=== PATIENT | male | born 1965 | race Caucasian/White ===

== ENCOUNTER 2016-06-30 22:23 | Emergency (ER) | payer SELFPAY ==
[2016-06-30] MEDS ORDERED: THIAMINE HCL 100 MG, MVI, ADULT NO.1 WITH VIT K 10 ML, FOLIC ACID 5 MG in 0.9 % SODIUM ... IV ONE ×4 (22:55)
[2016-06-30] MEDS ORDERED: LORazepam 2 MG/ML VIAL IVP ONE (22:58)
[2016-06-30] MEDS ORDERED: 0.9 % SODIUM CHLORIDE 1,000 ML IV ONE ×2 (23:03→23:39)
[2016-06-30] MEDS ORDERED: MVI, ADULT NO.1 WITH VIT K 10 ML VIAL IV ONE (23:04)
[2016-06-30] MEDS ORDERED: THIAMINE HCL 100 MG/ML 2ML VIAL ONE (23:04)
[2016-06-30] MEDS ORDERED: FOLIC ACID 5 MG/1 ML ONE (23:04)
[2016-06-30 23:18] LABS: eGFR (African) > 60; eGFR (Non-African) > 60
--- NOTE | 2016-06-30 23:18 | ED Physician Documentation ---
General Adult - HISTORIAN Historian: patient - HPI Stated Complaint: alcoholism Chief Complaint: General Adult Additional Information: Pt. has been drinking alcohol his entire adult life Onset: other (daily drinking for many years) Timing: still present Severity: moderate Modifying Factors: anxiety Context: daily Quality: moderate Further Comments: no - ROS CONST: no problems EYES/ENT: none CVS/RESP: none GI/: none MS/SKIN/LYMPH: none NEURO/PSYCH: anxiety. denies: headache, fainting, dizziness, tingling, numbness , difficulty walking, difficulty with speech, depression - PAST HX Past History: other (alcoholism) Other History: none Surgeries/Procedures: other (appendectomy) Immunizations: referred to PCP Allergies/Adverse Reactions: Allergies Allergy/AdvReac Type Severity Reaction Status Date / Time No Known Allergies Allergy Verified 06/30/16 23:32 Home Medications: Ambulatory Orders Medication Instructions Recorded NK [NK] 06/30/16 - SOCIAL HX Smoking History: other (occasional smoker) Alcohol Use: heavy Drug Use: none - FAMILY HX Family History: No - REVIEWED ASSESSMENTS Nursing Assessment Reviewed: No Vitals Reviewed: No Progress - Results/Orders Results/Orders: ekg, cxr, cbc, cmp, ua, pt/ptt/inr, uds, etoh ordered - Progress Progress: pt. given 1 mg Ativan ivp, a banana bag IV in ER Critical Care Note - Critical Care Note Total Time (mins): 0 ED Results Lab/Radiology - Lab Results Lab Results: etoh 410, uds positive for benzodiazepines (was given ativan), ua unremarkable, amylse 300, potassium 3.1 - Radiology Radiology Impressions: cxr neg - Orders Orders: ED Orders Category Date Time Status Place Saline Lock/IV Now Care 06/30/16 22:55 Active CHEST 1 VIEW [RAD] Routine Exams 06/30/16 Ordered AMYLASE Routine Lab 06/30/16 22:50 Received CBC/PLATELET/DIFF Routine Lab 06/30/16 22:50 Received CMP Routine Lab 06/30/16 22:50 Received DRUG SCREEN URINE MEDICAL ONLY Routine Lab 06/30/16 Ordered ETHANOL MEDICAL USE ONLY Routine Lab 06/30/16 22:50 Received PT [PT-INR] Routine Lab 06/30/16 22:50 Received PTT Routine Lab 06/30/16 22:50 Received URINALYSIS Routine Lab 06/30/16 22:54 Ordered 0.9 % Sodium Chloride [Normal Saline] 1,000 ml Med 06/30/16 23:03 Discontinued IV .STK-MED Folic Acid [Folvite] Med 06/30/16 23:04 Discontinued 5 mg .ROUTE .STK-MED ONE LORazepam [Ativan] Med 06/30/16 22:58 Discontinued 1 mg IVP NOW ONE Mvi, Adult No.1 with Vit K [M.v.i. Adult] Med 06/30/16 23:04 Discontinued 10 ml IV .STK-MED ONE Thiamine HCl Med 06/30/16 23:04 Discontinued 200 mg .ROUTE .STK-MED ONE Thiamine HCl 100 mg Med 06/30/16 22:55 Discontinued Mvi, Adult No.1 with Vit K [M.v.i. Adult] 10 ml Folic Acid [Folvite] 5 mg 0.9 % Sodium Chloride [Normal Saline] 1,000 ml IV 1T EKG WITH COMPARISON Routine Ther 06/30/16 Ordered General Adult Physical Exam - PHYSICAL EXAM GENERAL APPEARANCE: anxious, intoxicated EENT: eye inspection normal, ENT inspection normal, pharynx normal, ISABELL, TM's nml, nystagmus NECK: normal inspection, thyroid normal, supple RESPIRATORY: no resp distress, chest non-tender, breath sounds normal CVS: reg rate & rhythm, heart sounds normal, equal pulses, no murmur, no gallop , PMI nml, no JVD ABDOMEN: soft, no organomegaly, normal bowel sounds, no abdominal bruit, no distension, non-tender BACK: normal inspection, no CVA tenderness SKIN: warm/dry, other (spider vascularity bilateral maxillary areas) EXTREMITIES: non-tender, normal range of motion, no evidence of injury, no edema , other (no asterixis) NEURO: oriented X3, CN's nml as tested, motor nml, sensation nml, other ( intoxicated) Discharge Clincal Impression: Alcoholism Home Medications: Ambulatory Orders NK [NK] 06/30/16 Comments: Case discussed with [facility] ([place] and all medical records reviewed by them. They accept pt. for admission. Transported in stable condition by family to [facility] [place] Condition: Stable Disposition: 01 HOME, SELF-CARE Decision to Admit: NO Decision Time: 01:00
[2016-06-30 23:19] LABS: BASOPHILS % 0.2 (0.0-1.5); LYMPHOCYTES # 1.7 # k/uL (0.6-4.0); MEAN CORPUSCULAR HEMOGLOBIN 31.9 pg (28.0-34.0); MONOCYTES # 0.1 # k/uL (0.0-0.9); MONOCYTES % 3.4 % (0.0-11.0); NEUTROPHILS # 2.2 # k/uL (1.4-7.7)
[2016-06-30] MEDS ORDERED: POTASSIUM CHLORIDE 20 MEQ TABLET.ER PO ONE (23:32)
--- NOTE | 2016-06-30 23:37 | Diagnostic Imaging Report ---
~ [facility] [address] [facility] [address] [facility] [address], [place]. [address] ~ ~ ~ ~ Report Submission Date: Jun 30, 2016 11:36:08 PM BODY JOINER Patient ~ Study Name: CATIA FLOWER ~ Date: Jun 30, 2016 11:22:59 PM BODY JOINER ~ Modality Type: CR Gender: M ~ Description: CHEST : 67 ~ Institution: [facility] Physician: FRANCISCO PETERS ~ ~ ~ ~ Portable chest History: Cough Findings: The lungs are clear. No pleural effusions are observed. Heart size and pulmonary vascularity are normal. Impression: Normal chest. ~ Electronically signed on Jun 30, 2016 11:36:08 PM BODY JOINER by: Kuldip GIRALDO
[2016-06-30] MEDS ORDERED: 0.9 % SODIUM CHLORIDE 1,000 ML IV SCH (23:45)
[2016-07-01 01:11] LABS: AMPHETAMINE NEGATIVE ng/mL (<1000); BARBITURATES NEGATIVE ng/mL (<300); CANNABINOIDS NEGATIVE ng/mL (<50); COCAINE NEGATIVE ng/mL (<150); METHAMPHETAMINE NEGATIVE ng/mL (<1000); METHYLENEDIOXYMETHAMPHETAMINE NEGATIVE ng/mL (<500)
[2016-07-01 01:12] LABS: APPEARANCE,URINE CLEAR (CLEAR); COLOR,URINE AMBER (YELLOW); OCCULT BLOOD,URINE NEGATIVE (NEGATIVE)
[2016-07-01 01:20] VITALS: BP 140/98
== END 2016-07-01 01:00 | disposition home or self-care (01) ==
LOC: ED 22:23
DX: F10.229 Alcohol dependence with intoxication, unspecified (principal)
CPT/HCPCS: 71010; 80053; 80320; 80377; 81002; 82150; 85025; 85610; 85730; A9270; J2060; J3411; J3490; J7030; 96361; 96374; 99283; G0477; G0480; S1016

== ENCOUNTER 2017-03-09 16:56 | Emergency (ER) | payer SELFPAY ==
[2017-03-09] MEDS ORDERED: ONDANSETRON HCL/PF 4 MG/ 2ML VIAL ONE (17:12)
[2017-03-09] MEDS ORDERED: 0.9 % SODIUM CHLORIDE 1,000 ML IV ONE (17:13)
[2017-03-09] MEDS ORDERED: THIAMINE HCL 100 MG/ML 2ML VIAL ONE (17:13)
[2017-03-09] MEDS ORDERED: LORazepam 2 MG/ML VIAL ONE (17:13)
[2017-03-09] MEDS ORDERED: FOLIC ACID 5 MG/1 ML ONE (17:13)
[2017-03-09] MEDS ORDERED: MVI, ADULT NO.1 WITH VIT K 10 ML VIAL IV ONE (17:14)
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
[2017-03-09 17:27] LABS: BASOPHILS % 0.8 (0.0-1.5); MEAN CORPUSCULAR HEMOGLOBIN 31.6 pg (28.0-34.0); MEAN CORPUSCULAR VOLUME 85.9 fl (80.0-100.0)
[2017-03-09] MEDS: ONDANSETRON HCL/PF 4 MG/ 2ML VIAL IVP ONE (17:27)
[2017-03-09] MEDS: THIAMINE HCL 100 MG, MVI, ADULT NO.1 WITH VIT K 10 ML, FOLIC ACID 5 MG in 0.9 % SODIUM ... IV SCH ×4 (17:27)
[2017-03-09] MEDS: LORazepam 2 MG/ML VIAL IVP ONE (17:27)
[2017-03-09 17:28] LABS: EOSINOPHILS % 0.8 % (0.0-6.8); MONOCYTES % 4.4 % (0.0-11.0); NEUTROPHILS # 3.8 # k/uL (1.4-7.7)
[2017-03-09 17:34] LABS: eGFR (African) > 60; eGFR (Non-African) > 60
[2017-03-09 18:56] VITALS: BP 131/86
[2017-03-10 06:51] LABS: APPEARANCE,URINE CLOUDY (CLEAR); COLOR,URINE AMBER (YELLOW); OCCULT BLOOD,URINE TRACE-LYSED (NEGATIVE); PH URINE 5.5 (5.0 - 8.0); UROBILINOGEN URINE 0.2 Eu (0.2-1.0)
[2017-03-10 10:28] LABS: AMPHETAMINE NEGATIVE ng/mL (<1000); BARBITURATES NEGATIVE ng/mL (<300); CANNABINOIDS NEGATIVE ng/mL (< 50); COCAINE NEGATIVE ng/mL (<300); METHAMPHETAMINE NEGATIVE ng/mL (<1000); METHYLENEDIOXYMETHAMPHETAMINE NEGATIVE ng/mL (<500); OPIATES NEGATIVE ng/mL (<300)
== END 2017-03-09 18:40 ==
LOC: ED 16:56
DX: R45.1 Restlessness and agitation (principal); R73.9 Hyperglycemia, unspecified; F10.10 Alcohol abuse, uncomplicated
CPT/HCPCS: 80053; 80320; 80377; 81002; 83735; 85025; J2060; J2405; J3411; J3490; J7030; 96361; 96365; 96375; 99284; G0480; G0481; S1016